=== PATIENT | female | born 1985 | race Two or more races ===

== ENCOUNTER 2018-01-15 16:12 | Emergency (ER) | payer MEDICAID ==
[~2018-01-15] VITALS: Ht 154.9 cm; Wt 86.2 kg
[2018-01-15 16:21] VITALS: BP 127/81
[2018-01-15] MEDS ORDERED: ACETAMINOPHEN 500 MG TAB PO ONE (20:00)
[2018-01-15] MEDS ORDERED: TETANUS-DIPTH-ACEL PERTUSSIS 0.5ML SYRG IM ONE (20:15)
== END 2018-01-15 20:28 | disposition home or self-care (01) ==
LOC: ER 16:12
DX: S00.93XA Contusion of unspecified part of head, initial encounter (principal); V86.59XA Driver of other special all-terrain or other off-road motor vehicle injured in nontraffic accident, initial encounter; Y93.89 Activity, other specified; Y99.8 Other external cause status; Y92.89 Other specified places as the place of occurrence of the external cause
CPT/HCPCS: 70450; 90471; 90715